=== PATIENT | male | born 1960 | race Caucasian/White ===

== ENCOUNTER 2019-03-13 11:17 | Outpatient (CLI) | payer OTHER | END 2019-03-13 11:18 | disposition critical access hospital (66) | LOC: EMS 11:17 | PROVIDERS: ATTEND Surgery | DX: S49.92XA Unspecified injury of left shoulder and upper arm, initial encounter (principal); V18.4XXA Pedal cycle driver injured in noncollision transport accident in traffic accident, initial encounter; Y93.55 Activity, bike riding; Y92.414 Local residential or business street as the place of occurrence of the external cause | CPT/HCPCS: A0425; A0427 ==

== ENCOUNTER 2019-03-13 11:52 | Observation (INO) | payer OTHER ==
[2019-03-13] MEDS ORDERED: MORPHINE 2 MG/ML CARPUJECT IVP STA ×2 (12:20→12:52)
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
[2019-03-13] MEDS ORDERED: BACITRACIN OINT TOP STA (13:56)
[2019-03-13] MEDS ORDERED: KETOROLAC 30 MG/ML VIAL IVP STA (13:58)
[2019-03-13] MEDS ORDERED: HYDROmorphone 1 MG/ML CARPUJECT IVP STA (13:58)
[2019-03-13] MEDS ORDERED: TETANUS/DIPHTHERIA/PERTUSSIS 0.5 ML SYRINGE IM ONE (14:09)
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
[2019-03-13] MEDS ORDERED: SODIUM CHLORIDE FLUSH 0.9% 10 ML SYRINGE IVP PRN (14:42)
[2019-03-13] MEDS ORDERED: HYDROmorphone 0.5 MG/0.5 ML SYRINGE IVP PRN (14:42)
[2019-03-13] MEDS ORDERED: ACETAMINOPHEN 325 MG TABLET PO PRN (14:45)
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
[2019-03-13] MEDS ORDERED: BACITRACIN OINT TOP PRN (16:31)
[2019-03-13] MEDS: D5NS W/20 MEQ KCL 1,000 ML IV SCH (16:59)
[2019-03-13] MEDS: SODIUM CHLORIDE FLUSH 0.9% 10 ML SYRINGE IVP SCH (17:00)
[2019-03-13] MEDS: oxyCODONE 5 MG TABLET PO PRN ×2 (18:31→22:46)
[2019-03-13] MEDS: ACETAMINOPHEN 325 MG TABLET PO PRN ×2 (18:31→22:47)
[2019-03-13] MEDS: PANTOPRAZOLE 40 MG TABLET PO SCH (18:31)
--- NOTE | 2019-03-13 18:40 | XRAY Report ---
Reason: SOB; pneumothorax Procedure Date: 03/13/2019 Accession Number: [id number] / [id number] Procedure: XR - Chest 1 View X-Ray CPT Code: 02720 FULL RESULT: EXAM: CHEST RADIOGRAPHY EXAM DATE: 03/13/2019 05:57 PM. CLINICAL HISTORY: SOB; pneumothorax. COMPARISON: CHEST 1 VIEW 03/13/2019 12:39 PM CERVICAL SPINE W/O 03/13/2019 12:32 PM CHEST W/O 03/13/2019 12:58 PM. TECHNIQUE: 1 view. FINDINGS: Lungs/Pleura: No consolidation. Lung volumes are normal. The pneumothorax is not identified on radiographs. Mediastinum: Within exam limitations, the cardiomediastinal contour is normal. Other: There is a fracture of the posterior left second rib. There is lucency consistent with fracture of the anterior right first rib. IMPRESSION: 1. Bilateral upper rib fractures. The tiny pneumothorax seen on CT is not definitely visible by radiograph. RADIA
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
[2019-03-13 20:28] LABS: BASOPHILS % (AUTO) 0.2 %; EOSINOPHILS % (AUTO) 0.1 %; HGB - HEMOGLOBIN 14.4 g/dL (14.0-18.0); LYMPHOCYTES # (AUTO) 0.9 10^3/uL (1.5-3.5); LYMPHOCYTES % (AUTO) 5.3 %; MEAN CORPUSCULAR HEMOGLOBIN 27.9 pg (27.0-31.0); MEAN CORPUSCULAR HGB CONC 33.4 g/dL (32.0-36.0); MEAN CORPUSCULAR VOLUME 83.5 fL (80.0-94.0); MONOCYTES % (AUTO) 6.2 %; NEUTROPHILS # (AUTO) 14.6 10^3/uL (1.5-6.6); NEUTROPHILS % (AUTO) 87.7 %; PLT - PLATELET COUNT 229 10^3/uL (130-450); RED BLOOD COUNT 5.16 10^6/uL (4.70-6.10); RED CELL DISTRIBUTION WIDTH 13.2 % (12.0-15.0); WHITE BLOOD COUNT 16.7 x10^3/uL (4.8-10.8)
[2019-03-13 20:37] LABS: CALCIUM 8.9 mg/dL (8.5-10.3); CREATININE 1.4 mg/dL (0.6-1.2)
[2019-03-13 20:49] LABS: TROPONIN I < 0.04 ng/mL (<0.49)
[2019-03-14] MEDS: SODIUM CHLORIDE FLUSH 0.9% 10 ML SYRINGE IVP SCH ×2 (02:02→08:43)
[2019-03-14] MEDS: oxyCODONE 5 MG TABLET PO PRN ×2 (03:02→09:09)
[2019-03-14] MEDS: D5NS W/20 MEQ KCL 1,000 ML IV SCH (03:16)
[2019-03-14 05:18] LABS: BASOPHILS % (AUTO) 0.4 %; EOSINOPHILS % (AUTO) 0.4 %; HGB - HEMOGLOBIN 12.4 g/dL (14.0-18.0); LYMPHOCYTES # (AUTO) 1.6 10^3/uL (1.5-3.5); LYMPHOCYTES % (AUTO) 15.5 %; MEAN CORPUSCULAR HEMOGLOBIN 28.6 pg (27.0-31.0); MEAN CORPUSCULAR VOLUME 84.3 fL (80.0-94.0); MEAN PLATELET VOLUME 10.7 fL (7.4-11.4); MONOCYTES % (AUTO) 9.7 %; NEUTROPHILS # (AUTO) 7.7 10^3/uL (1.5-6.6); NEUTROPHILS % (AUTO) 73.6 %; PLT - PLATELET COUNT 184 10^3/uL (130-450); RED BLOOD COUNT 4.33 10^6/uL (4.70-6.10); RED CELL DISTRIBUTION WIDTH 13.2 % (12.0-15.0); WHITE BLOOD COUNT 10.4 x10^3/uL (4.8-10.8)
[2019-03-14 05:27] LABS: ALBUMIN 3.6 g/dL (3.2-5.5); ALBUMIN/GLOBULIN RATIO 1.3 (1.0-2.2); BILIRUBIN,TOTAL 0.8 mg/dL (0.2-1.0); CALCIUM 8.7 mg/dL (8.5-10.3); CREATININE 1.1 mg/dL (0.6-1.2); TOTAL PROTEIN 6.4 g/dL (6.7-8.2)
--- NOTE | 2019-03-14 05:43 | XRAY Report ---
Reason: Pneumothorax and rib fracture Procedure Date: 03/14/2019 Accession Number: [id number] / [id number] Procedure: XR - Chest 2 View X-Ray CPT Code: 86478 FULL RESULT: EXAM: CHEST RADIOGRAPHY EXAM DATE: 03/14/2019 04:56 AM. CLINICAL HISTORY: Pneumothorax and rib fracture. COMPARISON: CHEST 1 VIEW 03/13/2019 5:42 PM. TECHNIQUE: 2 views. FINDINGS: Lungs/Pleura: There are no infiltrates. There are no pneumothoraces. The lateral projection does demonstrate a small right pleural effusion posteriorly. Mediastinum: Heart and mediastinal contours are unremarkable. Other: None. IMPRESSION: Small right-sided pleural effusion. RADIA
[2019-03-14] MEDS: PANTOPRAZOLE 40 MG TABLET PO SCH (06:18)
[2019-03-14 07:46] VITALS: BP 119/69
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
--- NOTE | 2019-03-14 08:42 | Discharge Plan ---
Discharge Plan Problem Reviewed?: Yes Disposition: Home, Self Care Condition: Good Prescriptions: RX: oxyCODONE [Roxicodone] 5 mg PO Q4HR PRN #20 tablet PRN Reason: Pain 5 to 7 Docusate Sodium 250Mg Capsule [Colace 250Mg Capsule] 250 mg PO DAILY #10 capsule Shower Restrictions: No Driving Restrictions: Yes Assistance Devices: Sling (LEFT arm) Weight Bearing: Full Weight Instruction Topics: Oxycodone tablets or capsules, Fx Finger Toe, Fx Rib, ED Abrasion Additional Instructions or Follow Up instructions: Call with any surgical questions or concerns. Call my office so that an outpatient echocardiogram can be scheduled. I have communicated with Dr. Michael Ny that the patient will be seen in his office tomorrow in [place] at 0800. No Smoking: If you smoke, Please STOP! Call for help. Follow-up with: Andrea Flores MD [Provider Admit Priv/Credential] - Shemar Johnson MD [Provider Admit Priv/Credential] - Michael Ny MD [Provider Admit Priv/Credential] -
[2019-03-14] MEDS ORDERED: ENOXAPARIN 40 MG/0.4 ML SYRINGE SUBQ SCH (09:00)
[2019-03-14] MEDS ORDERED: POLYETHYLENE GLYCOL 3350 17 GM PACKET PO SCH (09:00)
[2019-03-14] MEDS ORDERED: predniSONE 20 MG TABLET PO SCH (09:00)
== END 2019-03-14 10:05 | disposition home or self-care (01) ==
LOC: EDUNIT# → ED 11:52 → MS2 14:42
PROVIDERS: ADMIT Surgery; ATTEND Surgery
DX: S22.31XA Fracture of one rib, right side, initial encounter for closed fracture (principal); S22.42XA Multiple fractures of ribs, left side, initial encounter for closed fracture; S27.0XXA Traumatic pneumothorax, initial encounter; S62.337A Displaced fracture of neck of fifth metacarpal bone, left hand, initial encounter for closed fracture; R55 Syncope and collapse; S43.102A Unspecified dislocation of left acromioclavicular joint, initial encounter; V19.9XXA Pedal cyclist (driver) (passenger) injured in unspecified traffic accident, initial encounter; H53.2 Diplopia; R22.0 Localized swelling, mass and lump, head; M54.2 Cervicalgia; S80.212A Abrasion, left knee, initial encounter; S80.211A Abrasion, right knee, initial encounter; S60.512A Abrasion of left hand, initial encounter; S60.511A Abrasion of right hand, initial encounter; S40.212A Abrasion of left shoulder, initial encounter; S40.211A Abrasion of right shoulder, initial encounter; S00.81XA Abrasion of other part of head, initial encounter
CPT/HCPCS: 36415; 70450; 70486; 71045; 71046; 71250; 72125; 73030; 73130; 73630; 80048; 80053; 84484; 85025; 90471; 90715; 93005; 96361; 96372; 96374; 96375; 99285; A9270; G0378; J1170; J1650; J7512